=== PATIENT | female | born 1950 | race Caucasian/White ===

== ENCOUNTER 2018-03-09 11:01 | Inpatient (IN) ==
--- NOTE | 2018-03-09 11:51 | Emergency Department Note ---
Disposition Clinical Impression: Hallucinations, ESRD (end stage renal disease) Altered mental status Qualifiers: Altered mental status type: unspecified Qualified Code(s): R41.82 - Altered mental status, unspecified Disposition: Admitted As Inpatient Condition: Fair Referrals: George Mann DO [Primary Care Provider] - Forms: ED Satisfaction Letter Altered Mental Status HPI - General Chief Complaint: ED Altered Mental Status Stated Complaint: AMS Time Seen by Provider: 03/09/18 11:19 Source: patient Mode of arrival: ambulatory Limitations: no limitations Nursing Notes Reviewed: Yes Vital Signs Reviewed: Yes - History of Present Illness HPI Narrative: 67-year-old female with a history of end-stage renal disease(MWF with Dr. Wisdom), dialysis, anxiety and depression presents for evaluation of altered mental status. Patient presents in the care of her daughter. Patient does live in [place] [facility]. Daughter states the patient feels that she has bugs crawling in her hands and all throughout her body. Patient was evaluated [facility] after she was also seeing hallucinations. States that she feels that there are "Indians chasing her". Denies any recent medications.patient's daughter also states that she became really frustrated and threatened the patient stating that she wanted to kill her. However on my exam the patient denies any suicidal or homicidality. - Related Data Home Medications Medication Instructions Recorded Confirmed Amlodipine Besylate 10 mg PO DAILY 03/09/18 03/09/18 Cinacalcet [Sensipar] 30 mg PO DAILY 03/09/18 03/09/18 DULoxetine [Cymbalta] 30 mg PO DAILY 03/09/18 03/09/18 Docusate Sodium [Dok] 100 mg PO BID 03/09/18 03/09/18 Doxepin HCl 10 mg PO BID 03/09/18 03/09/18 FLUoxetine HCl [PROzac] 10 mg PO DAILY 03/09/18 03/09/18 Furosemide [Lasix] 80 mg PO BID PRN 03/09/18 03/09/18 Insulin Glargine [Lantus] 20 - 25 unit SQ HS PRN 03/09/18 03/09/18 Levothyroxine [Synthroid] 25 mcg PO DAILY 03/09/18 03/09/18 Metoprolol [Lopressor] 25 mg PO BID 03/09/18 03/09/18 Morphine Sulfate SR (12 HR) [MS 1 tab PO Q12HR 03/09/18 03/09/18 Contin] Omeprazole [PriLOSEC] 20 mg PO DAILY 03/09/18 03/09/18 Oxycodone HCl 15 mg PO Q6H PRN 03/09/18 03/09/18 Renal Vitamin [Renal Caps Softgel] 1 mg PO DAILY 03/09/18 03/09/18 Sevelamer [Renvela] 3,200 mg PO TIDWM 03/09/18 03/09/18 glipiZIDE [Glucotrol] 5 mg PO DAILY 03/09/18 03/09/18 Allergies Allergy/AdvReac Type Severity Reaction Status Date / Time Penicillins Allergy Rash Verified 03/09/18 11:29 iron AdvReac Vomiting Verified 03/09/18 11:29 All systems ED: reviewed and negative except as stated. Constitutional: Denies: fever Cardiovascular: Denies: chest pain Respiratory: Denies: cough Gastrointestinal: Denies: abdominal pain, nausea, vomiting Past Medical History - Past Medical History Source: patient Medical history: Reports: diabetes, hypertension Psychiatric history: Reports: anxiety - Social History Smoking Status: Never smoker Physical Exam - General Limitations: no limitations General appearance: alert, in no apparent distress - Head Head exam: atraumatic, normocephalic, normal inspection - Eye Eye exam: Present: normal appearance, PERRL, EOMI, scleral icterus - ENT ENT exam: normal exam - Neck Neck exam: Present: normal inspection - Chest Chest inspection: Present: normal inspection. Absent: symmetric chest wall rise - Respiratory Respiratory exam: Present: normal lung sounds bilaterally. Absent: prolonged expiratory phase - Cardiovascular Cardiovascular exam: Present: regular rate, normal rhythm. Absent: systolic murmur - Abdominal Exam Abdominal exam: Present: soft - Extremities Exam Extremities exam: Present: other (Bilateral below the knee amputations. Patient has a functioning right upper from the fistula in place.) - Expanded Upper Extremity Exam Shoulder exam: Present: normal inspection Arm exam: Present: normal inspection Elbow exam: Present: normal inspection Forearm/Wrist exam: Present: normal inspection Hand exam: Present: normal inspection. Absent: tenderness, swelling, abrasion, ecchymosis, deformity Neuromotor exam: Normal: wrist extension Neurosensory exam: Normal: radial nerve Vascular exam: Normal: capillary refill, radial pulse - Back Exam Back exam: Present: normal inspection - Neurological Exam Neurological exam: Present: alert - Psychiatric Psychiatric exam: Present: anxious - Skin Skin exam: Present: warm, dry, intact, normal color Course Course Narrative: Patient seen and examined. Patient appears to be resting comfortably. Patient does have visual hallucinations. Patient will get basic labs with attempted medical clearance. Disposition pending. - Reevaluation(s) Reevaluation #1: Patient's been resting comfortably. Time: 14:31 - Consultations Consultation #1: Spoke with Dr. Wisdom and made aware that the patient will be admitted. Time: 15:02 Vital Signs Temperature 98.0 F 03/09/18 11:03 Pulse Rate 81 03/09/18 11:03 Respiratory Rate 18 03/09/18 11:03 Blood Pressure 185/81 03/09/18 11:03 O2 Sat by Pulse Oximetry 92 03/09/18 11:03 Temperature 98.0 F 03/09/18 11:03 Pulse Rate 81 03/09/18 11:03 Respiratory Rate 18 03/09/18 11:03 Blood Pressure 185/81 03/09/18 11:03 O2 Sat by Pulse Oximetry 92 03/09/18 11:03 Oxygen Delivery Oxygen Delivery Room Air Altered Mental Status - Lab Data Lab results reviewed: Yes I reviewed the patient's lab results. Result diagrams: 03/09/18 11:56 03/09/18 11:56 Lab Results 03/09/18 03/09/18 03/09/18 Range/Units 11:56 11:56 11:56 WBC 9.3 (4.3-11.1) K/mcL RBC 3.24 L (3.82-4.97) M/mcL Hgb 10.5 L (11.5-15.4) g/dL Hct 32.4 L (35.3-44.9) % MCV 100.0 (83.0-100.0) fL MCH 32.4 (28.0-33.3) pg MCHC 32.4 (31.6-35.5) g/dL RDW 14.8 H (11.5-14.5) % Plt Count 181 (140-400) K/mcL MPV 10.4 (9.4-12.4) fL Immature Gran % 0.3 (0-4) % Seg Neutrophils % 79.3 % Lymphocytes % 10.5 % Monocytes % 5.7 % Eosinophils % 3.8 % Basophils % 0.4 % Neutrophils # 7.4 (1.6-8.9) K/mcL Lymphocytes # 1.0 (0.6-4.6) K/mcL Monocytes # 0.5 (0.0-1.3) K/mcL Eosinophils # 0.4 (0.0-0.6) K/mcL Basophils # 0.0 (0.0-0.2) K/mcL PT 46.2 H* (9.4-12.1) Seconds INR 4.2 Sodium 135 L (136-145) mEq/L Potassium 4.6 (3.5-5.1) mEq/L Chloride 93 L (98-107) mEq/L Carbon Dioxide 29 (23-29) mEq/L BUN 38 H (8-23) mg/dL Creatinine 6.07 H (0.60-1.20) mg/dL Est GFR ( Amer) 8 L (> 60) Est GFR (Non-Af Amer) 7 L (> 60) BUN/Creatinine Ratio 6 (6-26) Glucose 340 H (70-105) mg/dL Calculated Osmolality 302 H (280-300) Calcium 9.4 (8.6-10.3) mg/dL Total Bilirubin 0.8 (0.3-1.0) mg/dL Direct Bilirubin 0.4 H (0.0-0.2) mg/dL Indirect Bilirubin 0.4 (0.0-1.2) mg/dL AST 14 (13-39) Units/L ALT 11 (7-52) Units/L Alkaline Phosphatase 122 H (34-104) Units/L Serum Total Protein 7.5 (6.4-8.9) g/dL Albumin 4.5 (3.5-5.7) g/dL Globulin 3.0 (2.4-3.5) g/dL Albumin/Globulin Ratio 1.5 (1.1-2.2) TSH 10.599 H (0.340-5.600) mcIU/mL Urine Color (Yellow) Urine Clarity (Clear) Urine pH (5.0-8.0) pH Units Ur Specific Jamul (1.010-1.025) Urine Protein (Neg-Trace) mg/dL Urine Glucose (UA) (Normal) mg/dL Urine Ketones (Negative) mg/dL Urine Blood (Negative) Urine Nitrite (Negative) Urine Bilirubin (Negative) Urine Urobilinogen (Normal) mg/dL Ur Leukocyte Esterase (Negative) Urine Microscopic RBC (0-3) per hpf Urine Microscopic WBC (0-3) per hpf Ur Squamous Epith Cells (None-Few) per lpf Urine Bacteria (None-Few) per hpf Hyaline Casts (None-Few) per lpf Salicylates < 2.5 L (15.0-30.0) mg/dL Urine Opiates Screen (Fcjtcy=380) ng/mL Acetaminophen < 10 L (10-20) mcg/mL Ur Barbiturates Screen (Jzaaff=387) ng/mL Ur Phencyclidine Scrn (Cutoff=25) ng/mL Ur Amphetamines Screen (Pfrwzu=9279) ng/mL U Benzodiazepines Scrn (Senysf=005) ng/mL Urine Cocaine Screen (Cutoff= 300) ng/mL U Marijuana (THC) Screen (Cutoff = 50) ng/mL Ethyl Alcohol < 10 (Less than 10) mg/dL 03/09/18 03/09/18 Range/Units 12:40 12:40 WBC (4.3-11.1) K/mcL RBC (3.82-4.97) M/mcL Hgb (11.5-15.4) g/dL Hct (35.3-44.9) % MCV (83.0-100.0) fL MCH (28.0-33.3) pg MCHC (31.6-35.5) g/dL RDW (11.5-14.5) % Plt Count (140-400) K/mcL MPV (9.4-12.4) fL Immature Gran % (0-4) % Seg Neutrophils % % Lymphocytes % % Monocytes % % Eosinophils % % Basophils % % Neutrophils # (1.6-8.9) K/mcL Lymphocytes # (0.6-4.6) K/mcL Monocytes # (0.0-1.3) K/mcL Eosinophils # (0.0-0.6) K/mcL Basophils # (0.0-0.2) K/mcL PT (9.4-12.1) Seconds INR Sodium (136-145) mEq/L Potassium (3.5-5.1) mEq/L Chloride (98-107) mEq/L Carbon Dioxide (23-29) mEq/L BUN (8-23) mg/dL Creatinine (0.60-1.20) mg/dL Est GFR ( Amer) (> 60) Est GFR (Non-Af Amer) (> 60) BUN/Creatinine Ratio (6-26) Glucose (70-105) mg/dL Calculated Osmolality (280-300) Calcium (8.6-10.3) mg/dL Total Bilirubin (0.3-1.0) mg/dL Direct Bilirubin (0.0-0.2) mg/dL Indirect Bilirubin (0.0-1.2) mg/dL AST (13-39) Units/L ALT (7-52) Units/L Alkaline Phosphatase (34-104) Units/L Serum Total Protein (6.4-8.9) g/dL Albumin (3.5-5.7) g/dL Globulin (2.4-3.5) g/dL Albumin/Globulin Ratio (1.1-2.2) TSH (0.340-5.600) mcIU/mL Urine Color Yellow (Yellow) Urine Clarity Clear (Clear) Urine pH 7.5 (5.0-8.0) pH Units Ur Specific Jamul 1.019 (1.010-1.025) Urine Protein >=300 H (Neg-Trace) mg/dL Urine Glucose (UA) 500 H (Normal) mg/dL Urine Ketones Negative (Negative) mg/dL Urine Blood Negative (Negative) Urine Nitrite Negative (Negative) Urine Bilirubin Negative (Negative) Urine Urobilinogen Normal (Normal) mg/dL Ur Leukocyte Esterase Negative (Negative) Urine Microscopic RBC 3-5 H (0-3) per hpf Urine Microscopic WBC 3-5 H (0-3) per hpf Ur Squamous Epith Cells Many H (None-Few) per lpf Urine Bacteria None Seen (None-Few) per hpf Hyaline Casts None Seen (None-Few) per lpf Salicylates (15.0-30.0) mg/dL Urine Opiates Screen Positive H (Acvbdv=975) ng/mL Acetaminophen (10-20) mcg/mL Ur Barbiturates Screen Negative (Jguvxy=690) ng/mL Ur Phencyclidine Scrn Negative (Cutoff=25) ng/mL Ur Amphetamines Screen Negative (Uozuoh=3756) ng/mL U Benzodiazepines Scrn Negative (Kqxdxc=572) ng/mL Urine Cocaine Screen Negative (Cutoff= 300) ng/mL U Marijuana (THC) Screen Negative (Cutoff = 50) ng/mL Ethyl Alcohol (Less than 10) mg/dL - Radiology Data Radiology results reviewed: Yes I reviewed the patient's radiology results. - EKG Data EKG attestation: Yes I reviewed and interpreted this EKG. EKG shows normal: sinus rhythm Rate: normal Rhythm: NSR Maxwell/QRS: left axis deviation T wave inversions: v1 When compared to previous EKG there are: no significant changes Interpretation: no acute changes TPA Checklist - LKW: 3-4.5 hrs Add. Warnings/Precautions Patient/family understanding: The patient/family members have been counseled and understood the risk, benefit , and alternatives of treatment. Medical Clearance - [facility] Narrative Medical decision making narrative: Patient presents with concerns of altered mental status and hallucinations. On exam the patient has no focal neurologic deficits. Complaining of things in her skin. Skin crawling. Patient also verbalizes visual hallucinations. Daughter at bedside states the patient was combative and threatened homicide as well as suicide. Patient does have a history of chronic kidney disease with Dr. Wisdom. Patient's creatinine is consistent with prior evaluations in the setting of chronic kidney disease. Patient will get medically cleared and evaluated by psychiatry. - Lab Data Lab results reviewed: Yes I reviewed the patient's lab results. Result diagrams: 03/09/18 11:56 03/09/18 11:56 Lab Results 03/09/18 03/09/18 03/09/18 Range/Units 11:56 11:56 11:56 WBC 9.3 (4.3-11.1) K/mcL RBC 3.24 L (3.82-4.97) M/mcL Hgb 10.5 L (11.5-15.4) g/dL Hct 32.4 L (35.3-44.9) % MCV 100.0 (83.0-100.0) fL MCH 32.4 (28.0-33.3) pg MCHC 32.4 (31.6-35.5) g/dL RDW 14.8 H (11.5-14.5) % Plt Count 181 (140-400) K/mcL MPV 10.4 (9.4-12.4) fL Immature Gran % 0.3 (0-4) % Seg Neutrophils % 79.3 % Lymphocytes % 10.5 % Monocytes % 5.7 % Eosinophils % 3.8 % Basophils % 0.4 % Neutrophils # 7.4 (1.6-8.9) K/mcL Lymphocytes # 1.0 (0.6-4.6) K/mcL Monocytes # 0.5 (0.0-1.3) K/mcL Eosinophils # 0.4 (0.0-0.6) K/mcL Basophils # 0.0 (0.0-0.2) K/mcL PT 46.2 H* (9.4-12.1) Seconds INR 4.2 Sodium 135 L (136-145) mEq/L Potassium 4.6 (3.5-5.1) mEq/L Chloride 93 L (98-107) mEq/L Carbon Dioxide 29 (23-29) mEq/L BUN 38 H (8-23) mg/dL Creatinine 6.07 H (0.60-1.20) mg/dL Est GFR ( Amer) 8 L (> 60) Est GFR (Non-Af Amer) 7 L (> 60) BUN/Creatinine Ratio 6 (6-26) Glucose 340 H (70-105) mg/dL Calculated Osmolality 302 H (280-300) Calcium 9.4 (8.6-10.3) mg/dL Total Bilirubin 0.8 (0.3-1.0) mg/dL Direct Bilirubin 0.4 H (0.0-0.2) mg/dL Indirect Bilirubin 0.4 (0.0-1.2) mg/dL AST 14 (13-39) Units/L ALT 11 (7-52) Units/L Alkaline Phosphatase 122 H (34-104) Units/L Serum Total Protein 7.5 (6.4-8.9) g/dL Albumin 4.5 (3.5-5.7) g/dL Globulin 3.0 (2.4-3.5) g/dL Albumin/Globulin Ratio 1.5 (1.1-2.2) TSH 10.599 H (0.340-5.600) mcIU/mL Urine Color (Yellow) Urine Clarity (Clear) Urine pH (5.0-8.0) pH Units Ur Specific Jamul (1.010-1.025) Urine Protein (Neg-Trace) mg/dL Urine Glucose (UA) (Normal) mg/dL Urine Ketones (Negative) mg/dL Urine Blood (Negative) Urine Nitrite (Negative) Urine Bilirubin (Negative) Urine Urobilinogen (Normal) mg/dL Ur Leukocyte Esterase (Negative) Urine Microscopic RBC (0-3) per hpf Urine Microscopic WBC (0-3) per hpf Ur Squamous Epith Cells (None-Few) per lpf Urine Bacteria (None-Few) per hpf Hyaline Casts (None-Few) per lpf Salicylates < 2.5 L (15.0-30.0) mg/dL Urine Opiates Screen (Mpwynn=295) ng/mL Acetaminophen < 10 L (10-20) mcg/mL Ur Barbiturates Screen (Skxhkw=637) ng/mL Ur Phencyclidine Scrn (Cutoff=25) ng/mL Ur Amphetamines Screen (Ifjrop=5330) ng/mL U Benzodiazepines Scrn (Fxvwxm=272) ng/mL Urine Cocaine Screen (Cutoff= 300) ng/mL U Marijuana (THC) Screen (Cutoff = 50) ng/mL Ethyl Alcohol < 10 (Less than 10) mg/dL 03/09/18 03/09/18 Range/Units 12:40 12:40 WBC (4.3-11.1) K/mcL RBC (3.82-4.97) M/mcL Hgb (11.5-15.4) g/dL Hct (35.3-44.9) % MCV (83.0-100.0) fL MCH (28.0-33.3) pg MCHC (31.6-35.5) g/dL RDW (11.5-14.5) % Plt Count (140-400) K/mcL MPV (9.4-12.4) fL Immature Gran % (0-4) % Seg Neutrophils % % Lymphocytes % % Monocytes % % Eosinophils % % Basophils % % Neutrophils # (1.6-8.9) K/mcL Lymphocytes # (0.6-4.6) K/mcL Monocytes # (0.0-1.3) K/mcL Eosinophils # (0.0-0.6) K/mcL Basophils # (0.0-0.2) K/mcL PT (9.4-12.1) Seconds INR Sodium (136-145) mEq/L Potassium (3.5-5.1) mEq/L Chloride (98-107) mEq/L Carbon Dioxide (23-29) mEq/L BUN (8-23) mg/dL Creatinine (0.60-1.20) mg/dL Est GFR ( Amer) (> 60) Est GFR (Non-Af Amer) (> 60) BUN/Creatinine Ratio (6-26) Glucose (70-105) mg/dL Calculated Osmolality (280-300) Calcium (8.6-10.3) mg/dL Total Bilirubin (0.3-1.0) mg/dL Direct Bilirubin (0.0-0.2) mg/dL Indirect Bilirubin (0.0-1.2) mg/dL AST (13-39) Units/L ALT (7-52) Units/L Alkaline Phosphatase (34-104) Units/L Serum Total Protein (6.4-8.9) g/dL Albumin (3.5-5.7) g/dL Globulin (2.4-3.5) g/dL Albumin/Globulin Ratio (1.1-2.2) TSH (0.340-5.600) mcIU/mL Urine Color Yellow (Yellow) Urine Clarity Clear (Clear) Urine pH 7.5 (5.0-8.0) pH Units Ur Specific Jamul 1.019 (1.010-1.025) Urine Protein >=300 H (Neg-Trace) mg/dL Urine Glucose (UA) 500 H (Normal) mg/dL Urine Ketones Negative (Negative) mg/dL Urine Blood Negative (Negative) Urine Nitrite Negative (Negative) Urine Bilirubin Negative (Negative) Urine Urobilinogen Normal (Normal) mg/dL Ur Leukocyte Esterase Negative (Negative) Urine Microscopic RBC 3-5 H (0-3) per hpf Urine Microscopic WBC 3-5 H (0-3) per hpf Ur Squamous Epith Cells Many H (None-Few) per lpf Urine Bacteria None Seen (None-Few) per hpf Hyaline Casts None Seen (None-Few) per lpf Salicylates (15.0-30.0) mg/dL Urine Opiates Screen Positive H (Hevbrg=707) ng/mL Acetaminophen (10-20) mcg/mL Ur Barbiturates Screen Negative (Asljat=984) ng/mL Ur Phencyclidine Scrn Negative (Cutoff=25) ng/mL Ur Amphetamines Screen Negative (Oqleuh=3067) ng/mL U Benzodiazepines Scrn Negative (Opfrpb=383) ng/mL Urine Cocaine Screen Negative (Cutoff= 300) ng/mL U Marijuana (THC) Screen Negative (Cutoff = 50) ng/mL Ethyl Alcohol (Less than 10) mg/dL - Radiology Data Radiology results reviewed: Yes I reviewed the patient's radiology results. Chest X-Ray 03/09/18 11:47 IMPRESSION: Cardiomegaly with interstitial edema. Recommend correlation with any other signs of congestive heart failure. D/ / 03/09/2018 13:12:48 Paula Jacobson MD / [facility] Interpreting Provider: Paula Jacobson MD Head CT 03/09/18 11:47 IMPRESSION: No acute intracranial abnormality. Scattered subcortical and periventricular white matter hypodensities are most compatible with chronic small vessel disease. D/ / Melchor Miner MD / Melchor Miner MD Interpreting Provider: Melchor Miner MD
[2018-03-09 12:14] LABS: Basophils % 0.4 %; Eosinophils # 0.4 K/mcL (0.0-0.6); Eosinophils % 3.8 %; Hematocrit 32.4 % (35.3-44.9); Hemoglobin 10.5 g/dL (11.5-15.4); Immature Granulocytes % 0.3 % (0-4); Lymphocytes % 10.5 %; Mean Corpuscular HGB Conc 32.4 g/dL (31.6-35.5); Mean Corpuscular Hemoglobin 32.4 pg (28.0-33.3); Mean Platelet Volume 10.4 fL (9.4-12.4); Monocytes # 0.5 K/mcL (0.0-1.3); Monocytes % 5.7 %; Neutrophils # 7.4 K/mcL (1.6-8.9); Platelet Count 181 K/mcL (140-400); Red Blood Count 3.24 M/mcL (3.82-4.97); Red Cell Distribution Width 14.8 % (11.5-14.5); Segmented Neutrophils % 79.3 %
[2018-03-09 12:17] LABS: INR 4.2
[2018-03-09 12:24] LABS: Prothrombin Time 46.2 Seconds (9.4-12.1)
[2018-03-09 12:34] LABS: Alanine Aminotransferase 11 Units/L (7-52); Albumin 4.5 g/dL (3.5-5.7); Albumin/Globulin Ratio 1.5 (1.1-2.2); Alkaline Phosphatase 122 Units/L (34-104); Aspartate Amino Transferase 14 Units/L (13-39); BUN/Creatinine Ratio 6 (6-26); Bilirubin,Direct 0.4 mg/dL (0.0-0.2); Bilirubin,Indirect 0.4 mg/dL (0.0-1.2); Bilirubin,Total 0.8 mg/dL (0.3-1.0); Blood Urea Nitrogen 38 mg/dL (8-23); Calcium 9.4 mg/dL (8.6-10.3); Carbon Dioxide 29 mEq/L (23-29); Chloride 93 mEq/L (98-107); Glucose 340 mg/dL (70-105); Osmolality,Calculated 302 (280-300); Potassium 4.6 mEq/L (3.5-5.1); Sodium 135 mEq/L (136-145); Total Protein 7.5 g/dL (6.4-8.9); eGFR For African Americans 8 (> 60); eGFR For Non-African Americans 7 (> 60)
[2018-03-09 12:45] LABS: Thyroid Stimulating Hormone 10.599 mcIU/mL (0.340-5.600)
--- NOTE | 2018-03-09 13:04 | Emergency Department Note ---
Disposition Clinical Impression: Altered mental status Qualifiers: Altered mental status type: unspecified Qualified Code(s): R41.82 - Altered mental status, unspecified Disposition: Admitted As Inpatient Referrals: George Mann DO [Primary Care Provider] - Forms: ED Satisfaction Letter General Adult HPI - General Chief complaint: ED Altered Mental Status Stated complaint: AMS Time Seen by Provider: 03/09/18 11:19 Source: patient Mode of arrival: ambulatory Limitations: no limitations - History of Present Illness Pain Scale: 8 - Related Data Allergies Allergy/AdvReac Type Severity Reaction Status Date / Time Penicillins Allergy Rash Verified 03/09/18 11:29 iron AdvReac Vomiting Verified 03/09/18 11:29 Constitutional: Denies: fever Cardiovascular: Denies: chest pain Respiratory: Denies: cough Gastrointestinal: Denies: abdominal pain, nausea, vomiting Past Medical History - Past Medical History Medical history: Reports: diabetes, hypertension Psychiatric history: Reports: anxiety - Social History Smoking Status: Never smoker Physical Exam - General Limitations: no limitations General appearance: alert, in no apparent distress Course Vital Signs Temperature 98.0 F 03/09/18 11:03 Pulse Rate 81 03/09/18 11:03 Respiratory Rate 18 03/09/18 11:03 Blood Pressure 185/81 03/09/18 11:03 O2 Sat by Pulse Oximetry 92 03/09/18 11:03 Temperature 98.0 F 03/09/18 11:03 Pulse Rate 81 03/09/18 11:03 Respiratory Rate 18 03/09/18 11:03 Blood Pressure 185/81 03/09/18 11:03 O2 Sat by Pulse Oximetry 92 03/09/18 11:03 Oxygen Delivery Oxygen Delivery Room Air Medical Decision Making - Lab Data Result diagrams: 03/09/18 11:56 03/09/18 11:56 Lab Results 03/09/18 03/09/18 03/09/18 Range/Units 11:56 11:56 11:56 WBC 9.3 (4.3-11.1) K/mcL RBC 3.24 L (3.82-4.97) M/mcL Hgb 10.5 L (11.5-15.4) g/dL Hct 32.4 L (35.3-44.9) % MCV 100.0 (83.0-100.0) fL MCH 32.4 (28.0-33.3) pg MCHC 32.4 (31.6-35.5) g/dL RDW 14.8 H (11.5-14.5) % Plt Count 181 (140-400) K/mcL MPV 10.4 (9.4-12.4) fL Immature Gran % 0.3 (0-4) % Seg Neutrophils % 79.3 % Lymphocytes % 10.5 % Monocytes % 5.7 % Eosinophils % 3.8 % Basophils % 0.4 % Neutrophils # 7.4 (1.6-8.9) K/mcL Lymphocytes # 1.0 (0.6-4.6) K/mcL Monocytes # 0.5 (0.0-1.3) K/mcL Eosinophils # 0.4 (0.0-0.6) K/mcL Basophils # 0.0 (0.0-0.2) K/mcL PT 46.2 H* (9.4-12.1) Seconds INR 4.2 Sodium 135 L (136-145) mEq/L Potassium 4.6 (3.5-5.1) mEq/L Chloride 93 L (98-107) mEq/L Carbon Dioxide 29 (23-29) mEq/L BUN 38 H (8-23) mg/dL Creatinine 6.07 H (0.60-1.20) mg/dL Est GFR ( Amer) 8 L (> 60) Est GFR (Non-Af Amer) 7 L (> 60) BUN/Creatinine Ratio 6 (6-26) Glucose 340 H (70-105) mg/dL Calculated Osmolality 302 H (280-300) Calcium 9.4 (8.6-10.3) mg/dL Total Bilirubin 0.8 (0.3-1.0) mg/dL Direct Bilirubin 0.4 H (0.0-0.2) mg/dL Indirect Bilirubin 0.4 (0.0-1.2) mg/dL AST 14 (13-39) Units/L ALT 11 (7-52) Units/L Alkaline Phosphatase 122 H (34-104) Units/L Serum Total Protein 7.5 (6.4-8.9) g/dL Albumin 4.5 (3.5-5.7) g/dL Globulin 3.0 (2.4-3.5) g/dL Albumin/Globulin Ratio 1.5 (1.1-2.2) TSH 10.599 H (0.340-5.600) mcIU/mL Attestation Statement - Attestation Attestation: I examined this patient and my medical decision-making was reviewed with the Resident Physician. I agree with the documented findings, disposition and treatment plan as described except to the extent set forth below. 67 year old female presents to the ED wtih complaints of AMS per her daughter. Taurus has presented as such before with UTI and is a dialysis patient with [facility] and scheduled for dialysis tomorrow. Taurus has become more aggressive at home and is threatening to hurt her daughter at bedside. WE will do aMS wokrup and rule out UTI and then admit to medicine for AMS and geriatric pysch clearance
[2018-03-09 13:09] LABS: Bilirubin,Urine Negative (Negative); Blood,Urine Negative (Negative); Clarity,Urine Clear (Clear); Color,Urine Yellow (Yellow); Glucose,Urine (UA) 500 mg/dL (Normal); Ketones,Urine Negative (Negative); Leukocyte Esterase,Urine Negative (Negative); Nitrite,Urine Negative (Negative); PH,Urine 7.5 pH Units (5.0-8.0); Protein,Urine >=300 mg/dL (Neg-Trace); Specific Gravity,Urine 1.019 (1.010-1.025); Urobilinogen,Urine Normal (Normal)
[2018-03-09 13:12] LABS: Bacteria,Urine None Seen per hpf (None-Few); Hyaline Casts,Urine None Seen per lpf (None-Few); Squamous Epithelial Cell,Urine Many per lpf (None-Few)
[2018-03-09 13:21] LABS: Amphetamine Screen,Urine Negative ng/mL (Cutoff=1000); Barbiturate Screen,Urine Negative ng/mL (Cutoff=200); Benzodiazepines Screen,Urine Negative ng/mL (Cutoff=200); Cannabinoid Screen,Urine Negative ng/mL (Cutoff = 50); Cocaine Screen,Urine Negative ng/mL (Cutoff= 300); Opiate Screen,Urine Positive ng/mL (Cutoff=300); Phencyclidine Screen,Urine Negative ng/mL (Cutoff=25)
[2018-03-09 13:29] LABS: Acetaminophen < 10 mcg/mL (10-20)
[2018-03-09 14:14] LABS: Ethanol < 10 mg/dL (Less than 10); Salicylate < 2.5 mg/dL (15.0-30.0)
--- NOTE | 2018-03-09 15:38 | Emergency Department Note ---
Disposition Clinical Impression: Hallucinations, ESRD (end stage renal disease), Hyperglycemia Altered mental status Qualifiers: Altered mental status type: unspecified Qualified Code(s): R41.82 - Altered mental status, unspecified Disposition: Admitted As Inpatient Condition: Fair Referrals: George Mann DO [Primary Care Provider] - Forms: ED Satisfaction Letter Time of Disposition: 15:49 General Adult HPI - General Chief complaint: ED Altered Mental Status Stated complaint: AMS Time Seen by Provider: 03/09/18 11:19 Source: patient Mode of arrival: ambulatory Limitations: no limitations - History of Present Illness HPI Narrative: This is a continuation of documentation. Pain Scale: 8 - Related Data Home Medications Medication Instructions Recorded Confirmed Amlodipine Besylate 10 mg PO DAILY 03/09/18 03/09/18 Cinacalcet [Sensipar] 30 mg PO DAILY 03/09/18 03/09/18 DULoxetine [Cymbalta] 30 mg PO DAILY 03/09/18 03/09/18 Docusate Sodium [Dok] 100 mg PO BID 03/09/18 03/09/18 Doxepin HCl 10 mg PO BID 03/09/18 03/09/18 FLUoxetine HCl [PROzac] 10 mg PO DAILY 03/09/18 03/09/18 Furosemide [Lasix] 80 mg PO BID PRN 03/09/18 03/09/18 Insulin Glargine [Lantus] 20 - 25 unit SQ HS PRN 03/09/18 03/09/18 Levothyroxine [Synthroid] 25 mcg PO DAILY 03/09/18 03/09/18 Metoprolol [Lopressor] 25 mg PO BID 03/09/18 03/09/18 Morphine Sulfate SR (12 HR) [MS 1 tab PO Q12HR 03/09/18 03/09/18 Contin] Omeprazole [PriLOSEC] 20 mg PO DAILY 03/09/18 03/09/18 Oxycodone HCl 15 mg PO Q6H PRN 03/09/18 03/09/18 Renal Vitamin [Renal Caps Softgel] 1 mg PO DAILY 03/09/18 03/09/18 Sevelamer [Renvela] 3,200 mg PO TIDWM 03/09/18 03/09/18 glipiZIDE [Glucotrol] 5 mg PO DAILY 03/09/18 03/09/18 Allergies Allergy/AdvReac Type Severity Reaction Status Date / Time Penicillins Allergy Rash Verified 03/09/18 11:29 iron AdvReac Vomiting Verified 03/09/18 11:29 Constitutional: Denies: fever Cardiovascular: Denies: chest pain Respiratory: Denies: cough Gastrointestinal: Denies: abdominal pain, nausea, vomiting Past Medical History - Past Medical History Medical history: Reports: diabetes, hypertension Psychiatric history: Reports: anxiety - Social History Smoking Status: Never smoker Physical Exam - General Limitations: no limitations General appearance: alert, in no apparent distress Course Vital Signs Temperature 98.0 F 03/09/18 11:03 Pulse Rate 81 03/09/18 11:03 Respiratory Rate 18 03/09/18 11:03 Blood Pressure 185/81 03/09/18 11:03 O2 Sat by Pulse Oximetry 92 03/09/18 11:03 Temperature 98.0 F 03/09/18 11:03 Pulse Rate 81 03/09/18 11:03 Respiratory Rate 18 03/09/18 11:03 Blood Pressure 185/81 03/09/18 11:03 O2 Sat by Pulse Oximetry 92 03/09/18 11:03 Oxygen Delivery Oxygen Delivery Room Air Medical Decision Making - MDM Narrative Medical decision making narrative: Patient's a 67-year-old female with history of anxiety depression who presented for suicide as well as homicidal ideations. This was expressed by the patient' s daughter. Patient has no history of SI. Patient's also been having some visual hallucinations. Patient has not been medically cleared and she has an element of end-stage renal disease. Patient will need continued medical management and consultation with psychiatry. Discussed the case with psychiatry who feels that the patient should best be admitted for her chronic conditions. Discussed the case with nephrology who made aware that the patient will be admitted. Patient did gradually tapers some of her Klonopin over the past several weeks. No recent changes in medications. Patient denies history of drugs or alcohol. Patient is noted be hyperglycemic and given insulin. - Lab Data Lab results reviewed: Yes I reviewed the patient's lab results. Result diagrams: 03/09/18 11:56 03/09/18 11:56 Lab Results 03/09/18 03/09/18 03/09/18 Range/Units 11:47 11:56 11:56 WBC 9.3 (4.3-11.1) K/mcL RBC 3.24 L (3.82-4.97) M/mcL Hgb 10.5 L (11.5-15.4) g/dL Hct 32.4 L (35.3-44.9) % MCV 100.0 (83.0-100.0) fL MCH 32.4 (28.0-33.3) pg MCHC 32.4 (31.6-35.5) g/dL RDW 14.8 H (11.5-14.5) % Plt Count 181 (140-400) K/mcL MPV 10.4 (9.4-12.4) fL Immature Gran % 0.3 (0-4) % Seg Neutrophils % 79.3 % Lymphocytes % 10.5 % Monocytes % 5.7 % Eosinophils % 3.8 % Basophils % 0.4 % Neutrophils # 7.4 (1.6-8.9) K/mcL Lymphocytes # 1.0 (0.6-4.6) K/mcL Monocytes # 0.5 (0.0-1.3) K/mcL Eosinophils # 0.4 (0.0-0.6) K/mcL Basophils # 0.0 (0.0-0.2) K/mcL PT 46.2 H* (9.4-12.1) Seconds INR 4.2 Sodium (136-145) mEq/L Potassium (3.5-5.1) mEq/L Chloride (98-107) mEq/L Carbon Dioxide (23-29) mEq/L BUN (8-23) mg/dL Creatinine (0.60-1.20) mg/dL Est GFR ( Amer) (> 60) Est GFR (Non-Af Amer) (> 60) BUN/Creatinine Ratio (6-26) Glucose (70-105) mg/dL POC Glucose 314 H (70-99) mg/dL Calculated Osmolality (280-300) Calcium (8.6-10.3) mg/dL Total Bilirubin (0.3-1.0) mg/dL Direct Bilirubin (0.0-0.2) mg/dL Indirect Bilirubin (0.0-1.2) mg/dL AST (13-39) Units/L ALT (7-52) Units/L Alkaline Phosphatase (34-104) Units/L Serum Total Protein (6.4-8.9) g/dL Albumin (3.5-5.7) g/dL Globulin (2.4-3.5) g/dL Albumin/Globulin Ratio (1.1-2.2) TSH (0.340-5.600) mcIU/mL Urine Color (Yellow) Urine Clarity (Clear) Urine pH (5.0-8.0) pH Units Ur Specific [place] (1.010-1.025) Urine Protein (Neg-Trace) mg/dL Urine Glucose (UA) (Normal) mg/dL Urine Ketones (Negative) mg/dL Urine Blood (Negative) Urine Nitrite (Negative) Urine Bilirubin (Negative) Urine Urobilinogen (Normal) mg/dL Ur Leukocyte Esterase (Negative) Urine Microscopic RBC (0-3) per hpf Urine Microscopic WBC (0-3) per hpf Ur Squamous Epith Cells (None-Few) per lpf Urine Bacteria (None-Few) per hpf Hyaline Casts (None-Few) per lpf Salicylates (15.0-30.0) mg/dL Urine Opiates Screen (Arpsgd=293) ng/mL Acetaminophen (10-20) mcg/mL Ur Barbiturates Screen (Xjgtsj=879) ng/mL Ur Phencyclidine Scrn (Cutoff=25) ng/mL Ur Amphetamines Screen (Qfrvvf=9054) ng/mL U Benzodiazepines Scrn (Bgqepi=266) ng/mL Urine Cocaine Screen (Cutoff= 300) ng/mL U Marijuana (THC) Screen (Cutoff = 50) ng/mL Ethyl Alcohol (Less than 10) mg/dL 03/09/18 03/09/18 03/09/18 Range/Units 11:56 12:40 12:40 WBC (4.3-11.1) K/mcL RBC (3.82-4.97) M/mcL Hgb (11.5-15.4) g/dL Hct (35.3-44.9) % MCV (83.0-100.0) fL MCH (28.0-33.3) pg MCHC (31.6-35.5) g/dL RDW (11.5-14.5) % Plt Count (140-400) K/mcL MPV (9.4-12.4) fL Immature Gran % (0-4) % Seg Neutrophils % % Lymphocytes % % Monocytes % % Eosinophils % % Basophils % % Neutrophils # (1.6-8.9) K/mcL Lymphocytes # (0.6-4.6) K/mcL Monocytes # (0.0-1.3) K/mcL Eosinophils # (0.0-0.6) K/mcL Basophils # (0.0-0.2) K/mcL PT (9.4-12.1) Seconds INR Sodium 135 L (136-145) mEq/L Potassium 4.6 (3.5-5.1) mEq/L Chloride 93 L (98-107) mEq/L Carbon Dioxide 29 (23-29) mEq/L BUN 38 H (8-23) mg/dL Creatinine 6.07 H (0.60-1.20) mg/dL Est GFR ( Amer) 8 L (> 60) Est GFR (Non-Af Amer) 7 L (> 60) BUN/Creatinine Ratio 6 (6-26) Glucose 340 H (70-105) mg/dL POC Glucose (70-99) mg/dL Calculated Osmolality 302 H (280-300) Calcium 9.4 (8.6-10.3) mg/dL Total Bilirubin 0.8 (0.3-1.0) mg/dL Direct Bilirubin 0.4 H (0.0-0.2) mg/dL Indirect Bilirubin 0.4 (0.0-1.2) mg/dL AST 14 (13-39) Units/L ALT 11 (7-52) Units/L Alkaline Phosphatase 122 H (34-104) Units/L Serum Total Protein 7.5 (6.4-8.9) g/dL Albumin 4.5 (3.5-5.7) g/dL Globulin 3.0 (2.4-3.5) g/dL Albumin/Globulin Ratio 1.5 (1.1-2.2) TSH 10.599 H (0.340-5.600) mcIU/mL Urine Color Yellow (Yellow) Urine Clarity Clear (Clear) Urine pH 7.5 (5.0-8.0) pH Units Ur Specific [place] 1.019 (1.010-1.025) Urine Protein >=300 H (Neg-Trace) mg/dL Urine Glucose (UA) 500 H (Normal) mg/dL Urine Ketones Negative (Negative) mg/dL Urine Blood Negative (Negative) Urine Nitrite Negative (Negative) Urine Bilirubin Negative (Negative) Urine Urobilinogen Normal (Normal) mg/dL Ur Leukocyte Esterase Negative (Negative) Urine Microscopic RBC 3-5 H (0-3) per hpf Urine Microscopic WBC 3-5 H (0-3) per hpf Ur Squamous Epith Cells Many H (None-Few) per lpf Urine Bacteria None Seen (None-Few) per hpf Hyaline Casts None Seen (None-Few) per lpf Salicylates < 2.5 L (15.0-30.0) mg/dL Urine Opiates Screen Positive H (Evwhsd=761) ng/mL Acetaminophen < 10 L (10-20) mcg/mL Ur Barbiturates Screen Negative (Rzpfch=292) ng/mL Ur Phencyclidine Scrn Negative (Cutoff=25) ng/mL Ur Amphetamines Screen Negative (Ndlkfx=5507) ng/mL U Benzodiazepines Scrn Negative (Lfnoih=213) ng/mL Urine Cocaine Screen Negative (Cutoff= 300) ng/mL U Marijuana (THC) Screen Negative (Cutoff = 50) ng/mL Ethyl Alcohol < 10 (Less than 10) mg/dL - Radiology Data Radiology results reviewed: Yes I reviewed the patient's radiology results. Chest X-Ray 03/09/18 11:47 IMPRESSION: Cardiomegaly with interstitial edema. Recommend correlation with any other signs of congestive heart failure. D/ / 03/09/2018 13:12:48 Paula Jacobson MD / [facility] Interpreting Provider: Paula Jacobsno MD Head CT 03/09/18 11:47 IMPRESSION: No acute intracranial abnormality. Scattered subcortical and periventricular white matter hypodensities are most compatible with chronic small vessel disease. D/ / Melchor Miner MD / Melchor Miner MD Interpreting Provider: Melchor Miner MD - EKG Data EKG #1 EKG attestation: Yes I reviewed and interpreted this EKG. EKG shows normal: sinus rhythm Rate: normal Rhythm: NSR [place]/QRS: normal T wave inversions noted in: v1 Interpretation: no acute changes, nonspecific ST-T wave changes S.B.Reta - [place] Situation: Demographics Background: Presenting Complaint Assessment: Vital Signs, Course and respsone to treatment, Patient/Family Expectation Recommendation: Barrier(s) to disposition, Recommendation based on pending studies, treatments, or consults SToño Report Given to: Dr. Delroy Joseph Repor Time: 15:48
[2018-03-09] MEDS ORDERED: Insulin Regular, Human 100 UNIT/ML IV ONE (15:47)
[2018-03-09] MEDS ORDERED: *HR* OxyCODONE Immed Rel 15 MG TABLET PO PRN (18:44)
[2018-03-09] MEDS ORDERED: *HR* LORazepam 2 MG/ML VIAL IVP PRN (18:47)
[2018-03-09] MEDS ORDERED: *HR* Dextrose 50 % in Water (Syg) 50 ML SYRINGE IVP PRN (18:48)
[2018-03-09] MEDS ORDERED: D5% in Water 1,000 ML IVC PRN (18:48)
[2018-03-09] MEDS ORDERED: Naloxone 0.4 MG/ML INJ IVP PRN (18:48)
[2018-03-09] MEDS ORDERED: Dextrose Gel 15 GM/37.5 ML TUBE PO PRN ×2 (18:48)
--- NOTE | 2018-03-09 18:57 | Internal Med History&Physical ---
Date of Encounter: 03/09/18 Time of Encounter: 18:54 Internal Medicine - H&P: HPI Chief complaint: Homicidal ideation, hallucinations Admitted From: Home Plans for Post Hospital Care: Home History of present illness: Ms. Lynch is a 67 year old female with a PMH of anxiety, diabetes, hypertension and ESRD. She presents to [facility] today for evaluation of altered mental status. The patient lives in a care home, daughter is at bedside. Daughter states that the patient is stating "I feel if her bugs crawling in and throughout her body ". Additionally, her daughters reporting that although her mother is blind she is having hallucinations and that she feels like "Indians are chasing her". Her daughter is also reporting homicidal ideation saying the patient became frustrated and saying that she wanted to kill her. Her daughter reports that her mother's primary care provider has recently stopped prescribing clonazepam because she is also taking opiates. She was weaned from the clonazepam and starting on doxepin overdose pain was causing adverse reactions as well and was discontinued abruptly. Her mental status has been declining since. CT of the head in the ED negative for acute intracranial abnormality. She is being admitted inpatient for psychiatric evaluation secondary to acute psychosis Past Med Surg Social Fam HX - Past Medical History Medical history: atrial fibrillation, diabetes, hypertension, renal disease Psychiatric history: anxiety - Social History Smoking Status: Never smoker Smokeless Tobacco Status: No Alcohol use: none Drug use: none - Family History Father Living Status: Age at : 80 Hx Family Cardiac Disorders: Yes Hx Family Cancer: Yes (prostate) Internal Medicine - H&P: Meds Amlodipine Besylate 10 mg PO DAILY 03/09/18 [History] Cinacalcet [Sensipar] 30 mg PO DAILY 03/09/18 [History] DULoxetine [Cymbalta] 30 mg PO DAILY 03/09/18 [History] Docusate Sodium [Dok] 100 mg PO BID 03/09/18 [History] Doxepin HCl 10 mg PO BID 03/09/18 [History] FLUoxetine HCl [PROzac] 10 mg PO DAILY 03/09/18 [History] Furosemide [Lasix] 80 mg PO BID PRN 03/09/18 [History] Insulin Glargine [Lantus] 20 - 25 unit SQ HS PRN 03/09/18 [History] Levothyroxine [Synthroid] 25 mcg PO DAILY 03/09/18 [History] Metoprolol [Lopressor] 25 mg PO BID 03/09/18 [History] Morphine Sulfate SR (12 HR) [MS Contin] 1 tab PO Q12HR 03/09/18 [History] Omeprazole [PriLOSEC] 20 mg PO DAILY 03/09/18 [History] Oxycodone HCl 15 mg PO Q6H PRN 03/09/18 [History] Renal Vitamin [Renal Caps Softgel] 1 mg PO DAILY 03/09/18 [History] Sevelamer [Renvela] 3,200 mg PO TIDWM 03/09/18 [History] glipiZIDE [Glucotrol] 5 mg PO DAILY 03/09/18 [History] 3 Allergy/AdvReac Type Severity Reaction Status Date / Time Penicillins Allergy Rash Verified 03/09/18 11:29 iron AdvReac Vomiting Verified 03/09/18 11:29 All Systems PM: A 10-system review of systems was performed and is negative for pertinent findings except as documented above in the HPI. Review of systems: REVIEW OF SYSTEMS GENERAL: Negative for any nausea, vomiting, fevers, chills, or weight loss. NEUROLOGIC: Negative for any blurry vision, blind spots, double vision, facial asymmetry, dysphagia, dysarthria, hemiparesis, hemisensory deficits, vertigo, ataxia. HEENT: Negative for any head trauma, neck trauma, neck stiffness, photophobia, phonophobia, sinusitis, rhinitis. CARDIAC: Negative for any chest pain, dyspnea on exertion, paroxysmal nocturnal dyspnea, peripheral edema. PULMONARY: Negative for any shortness of breath, wheezing, COPD, or TB exposure. GASTROINTESTINAL: Negative for any abdominal pain, nausea, vomiting, bright red blood per rectum, melena. GENITOURINARY: Negative for any dysuria, hematuria, incontinence. INTEGUMENTARY: Negative for any rashes, cuts, insect bites. RHEUMATOLOGIC: Negative for any joint pains, photosensitive rashes, history of vasculitis or kidney problems. HEMATOLOGIC: Negative for any abnormal bruising, frequent infections or bleeding. PSYCHOLOGICAL: Formication, Hallucinations, homicidal ideation - Constitutional Vitals: Temp Pulse Resp BP Pulse Ox 98.2 F 71 17 189/76 90 03/09/18 18:00 03/09/18 18:00 03/09/18 18:00 03/09/18 18:00 03/09/18 18:00 General appearance: Present: A&O X 2 Exam: PHYSICAL EXAMINATION: GENERAL: The patient is an obese, ill appearing female in mild distress secondary to psychosis. She is alert and oriented x3 HEENT: Head is normocephalic and atraumatic. NECK: Supple. No carotid bruits. No lymphadenopathy or thyromegaly. LUNGS: Clear to auscultation. HEART: Regular rate and rhythm without murmur. ABDOMEN: Soft, nontender, and nondistended. Positive bowel sounds. No hepatosplenomegaly was noted. 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 PSYCHIATRIC: The patient has formication reporting that forms are crawling under her skin and into her veins, additionally, she is blind but is reporting seeing objects, additionally she has homicidal ideation SKIN: No rashes, lesions, cyanosis or jaundice Internal Med - H&P Results - Labs CBC & Chem 7: 03/09/18 11:56 03/09/18 11:56 - EKG Data -: EKG Interpreted by Myself EKG shows normal: sinus rhythm - EKG Data EKG comments: Sinus rhythm with left axis deviation T-wave inversion in V1 otherwise no significant changes 03/09/18 19:00 - Impressions Impressions Chest X-Ray 03/09/18 11:47 IMPRESSION: Cardiomegaly with interstitial edema. Recommend correlation with any other signs of congestive heart failure. D/ / 03/09/2018 13:12:48 Paula Jacobson MD / [facility] Interpreting Provider: Paula Jacobson MD Head CT 03/09/18 11:47 IMPRESSION: No acute intracranial abnormality. Scattered subcortical and periventricular white matter hypodensities are most compatible with chronic small vessel disease. D/ / Melchor Miner MD / Melchor Miner MD Interpreting Provider: Melchor Miner MD - Assessment and plan (1) Acute psychosis Current Visit: Yes Status: Acute Assessment and plan: Presents today with hallucinations, homicidal ideation, anger and formication. Her daughter is at bedside and reports that she is also experiencing braulio and reports that she has not slept since Friday night. The patient has been on opiates and clonazepam chronically for many years. She was recently weaned from clonazepam over the course of many weeks and switched to Doxapine. While on the doxepin she began having night terrors and outbursts of anger so it was also discontinued. However the doxepin was discontinued abruptly. This could be contributing to her current presentation She is currently denying any homicidal ideation, denies suicidal ideation but is continuing to have formication and hallucinations Consult to psychiatry for recommendations regarding resuming clonazepam and/or medication management. ED physician spoke to psychiatrist who will see in consultation (2) Hallucinations Current Visit: Yes Status: Acute (3) Braulio Current Visit: Yes Status: Acute (4) Altered mental status Current Visit: Yes Status: Acute Qualifiers: Altered mental status type: unspecified Qualified Code(s): R41.82 - Altered mental status, unspecified (5) Diabetes Current Visit: Yes Status: Acute Assessment and plan: Sliding scale insulin coverage Resume basal insulin at home dose 20 units SQ daily at bedtime Qualifiers: Diabetes mellitus type: type 2 Diabetes mellitus mcfp insulin use: with mcfp use Diabetes mellitus complication status: with unspecified complications Qualified Code(s): E11.8 - Type 2 diabetes mellitus with unspecified complications; Z79.4 - retirement (current) use of insulin; Z79.4 - 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 Patient reports she follows with Dr. Greene. She is a [facility] dialysis patient. She did not receive dialysis today. Today's creatinine 6.07, GFR 7. The patient appears to be euvolemic Nephrology consult-ED physician spoke with nephrology who will see the patient in consultation (8) DVT prophylaxis Current Visit: Yes Status: Acute Assessment and plan: PT/INR 46.2/4.2; she does not take any blood thinners Hold heparin for now - Time Spent With Patient Total time spent is greater than 50% in coordination of care (as documented) at patient's floor/unit and/or counseling patient: 25 - 35 minutes
[2018-03-09] MEDS: Insulin LISPRO 300 UNITS/3 ML VIAL SQ SCH (20:44)
[2018-03-09] MEDS: (Doxepin Hcl [Doxepin Hcl] 10 MG) PO SCH (20:46)
[2018-03-09] MEDS: Furosemide 40 MG TABLET PO SCH (20:56)
[2018-03-09] MEDS ORDERED: Insulin DETEMIR 100 UNIT/ML X5UNITS SQ SCH (21:00)
[2018-03-10] MEDS ORDERED: *HR* Heparin 5,000 UNIT/ML VIAL SQ SCH (06:00)
[2018-03-10 06:02] LABS: Basophils % 0.4 %; Eosinophils # 0.4 K/mcL (0.0-0.6); Eosinophils % 4.6 %; Hemoglobin 9.6 g/dL (11.5-15.4); Immature Granulocytes % 0.2 % (0-4); Lymphocytes # 1.9 K/mcL (0.6-4.6); Lymphocytes % 22.6 %; Mean Corpuscular Hemoglobin 32.2 pg (28.0-33.3); Mean Corpuscular Volume 100.7 fL (83.0-100.0); Mean Platelet Volume 10.8 fL (9.4-12.4); Monocytes # 0.9 K/mcL (0.0-1.3); Monocytes % 10.3 %; Neutrophils # 5.1 K/mcL (1.6-8.9); Platelet Count 176 K/mcL (140-400); Red Blood Count 2.98 M/mcL (3.82-4.97); Red Cell Distribution Width 14.7 % (11.5-14.5); Segmented Neutrophils % 61.9 %
[2018-03-10] MEDS: Levothyroxine 25 MCG TABLET PO SCH (06:11)
[2018-03-10 06:21] LABS: Albumin 3.8 g/dL (3.5-5.7); Albumin/Globulin Ratio 1.4 (1.1-2.2); Bilirubin,Total 0.8 mg/dL (0.3-1.0); Calcium 8.5 mg/dL (8.6-10.3); Globulin 2.8 g/dL (2.4-3.5); Potassium 4.3 mEq/L (3.5-5.1); Total Protein 6.6 g/dL (6.4-8.9)
--- NOTE | 2018-03-10 08:03 | Nephrology Consult Note ---
Date of Encounter: 03/10/18 Time of Encounter: 08:00 Assessment and Plan (1) ESRD (end stage renal disease) Current Visit: Yes Status: Acute The patient has end-stage renal disease related to diabetic nephropathy and hypertension. She missed dialysis yesterday so she will undergo dialysis today. Hemoglobin is 9.6. She will be maintained on Aranesp. TSH is 10.59. She may need adjustment of her Synthroid. (2) Benign hypertension with ESRD (end-stage renal disease) Current Visit: Yes Status: Acute (3) Type 2 diabetes mellitus with diabetic chronic kidney disease Current Visit: Yes Status: Acute Qualifiers: Diabetes mellitus longwall foreman insulin use: with longwall foreman use Chronic kidney disease stage: on chronic dialysis Qualified Code(s): E11.22 - Type 2 diabetes mellitus with diabetic chronic kidney disease; N18.6 - End stage renal disease; Z99.2 - Dependence on renal dialysis; Z99.2 - Dependence on renal dialysis; Z99.2 - Dependence on renal dialysis; N18.6 - End stage renal disease ; N18.6 - End stage renal disease; N18.6 - End stage renal disease; Z79.4 - equipment operator intermodal yard (current) use of insulin; Z79.4 - equipment operator intermodal yard (current) use of insulin; Z79.4 - equipment operator intermodal yard (current) use of insulin; Z79.4 - senior living (current) use of insulin; Z99.2 - Dependence on renal dialysis (4) Altered mental status Current Visit: Yes Status: Acute Qualifiers: Altered mental status type: disorientation Qualified Code(s): R41.0 - Disorientation, unspecified History of Present Illness - History of Present Illness This is a 67-year-old female who has end-stage renal disease related to diabetes and hypertension. The patient receives dialysis every Friday in [place]. Patient was admitted with mental status changes in the setting of being weaned off her Klonopin. Patient does take narcotic analgesics on a chronic basis as well. I believe she receives his medications from her primary care provider. This morning the patient appears to be alert and oriented. She says overall she is feeling better. She did not undergo her dialysis yesterday so she will have dialysis today. Lab studies have been re- reviewed. Patient is not complaining of any shortness of breath nausea vomiting chest pain diarrhea fevers or chills. Past Med Surg Social Fam HX - Past Medical History Medical history: atrial fibrillation, diabetes, hypertension, renal disease Psychiatric history: anxiety - Social History Smoking Status: Never smoker Smokeless Tobacco Status: No Alcohol use: none Drug use: none - Family History Father Living Status: Age at : 80 Hx Family Cardiac Disorders: Yes Hx Family Cancer: Yes (prostate) Medications and Allergies Amlodipine Besylate 10 mg PO DAILY 03/09/18 [History] Cinacalcet [Sensipar] 30 mg PO DAILY 03/09/18 [History] DULoxetine [Cymbalta] 30 mg PO DAILY 03/09/18 [History] Docusate Sodium [Dok] 100 mg PO BID 03/09/18 [History] Doxepin HCl 10 mg PO BID 03/09/18 [History] FLUoxetine HCl [PROzac] 10 mg PO DAILY 03/09/18 [History] Furosemide [Lasix] 80 mg PO BID PRN 03/09/18 [History] Insulin Glargine [Lantus] 20 - 25 unit SQ HS PRN 03/09/18 [History] Levothyroxine [Synthroid] 25 mcg PO DAILY 03/09/18 [History] Metoprolol [Lopressor] 25 mg PO BID 03/09/18 [History] Morphine Sulfate SR (12 HR) [MS Contin] 1 tab PO Q12HR 03/09/18 [History] Omeprazole [PriLOSEC] 20 mg PO DAILY 03/09/18 [History] Oxycodone HCl 15 mg PO Q6H PRN 03/09/18 [History] Renal Vitamin [Renal Caps Softgel] 1 mg PO DAILY 03/09/18 [History] Sevelamer [Renvela] 3,200 mg PO TIDWM 03/09/18 [History] glipiZIDE [Glucotrol] 5 mg PO DAILY 03/09/18 [History] 3 Allergy/AdvReac Type Severity Reaction Status Date / Time Penicillins Allergy Rash Verified 03/09/18 11:29 iron AdvReac Vomiting Verified 03/09/18 11:29 Review of Systems Constitutional: as per HPI, weakness Eyes: bilateral: decreased vision, loss of vision Nose, mouth and throat: no dizziness, no headache(s) Cardiovascular: dyspnea on exertion, no chest pain, no palpitations Respiratory: dyspnea on exertion, no cough, no dyspnea Gastrointestinal: no abdominal pain, no change in bowel habits Musculoskeletal: no muscle weakness, no numbness Integumentary: no hirsutism, no striae Neurological: confusion Psychiatric: confusion Endocrine: as per HPI Hematologic/Lymphatic: no easy bruising, no lymphadenopathy Exam - Vital Signs Vital signs: Initial Vital Signs Temp Pulse Resp BP Pulse Ox 98.0 F 81 18 185/81 92 03/09/18 11:03 03/09/18 11:03 03/09/18 11:03 03/09/18 11:03 03/09/18 11:03 Vital Signs - Last 8 Hours Temp Pulse Resp BP Pulse Ox 03/10/18 05:00 98 F 62 16 154/87 99 Intake and Output 03/09/18 03/10/18 03/10/18 23:59 07:59 15:59 Intake Total 240 / 240 0 / 0 Output Total 300 / 300 Balance -60 / -60 0 / 0 Intake: Oral 240 / 240 0 / 0 Output: Urine 300 / 300 Other: Meal Dinner Percent of Meal Consumed 15% # Voids 0 # Urine Diapers 1 Weight 81.68 kg Blood Glucose* 176 - General Appearance Exam: This morning the patient appears alert and oriented. She is in no acute distress. Lungs clear to auscultation. Heart regular rate and rhythm with a 2/ 6 talk ejection murmur. Abdomen shows normal bowel sounds jennifer masses, megaly or tenderness. Patient is status post bilateral below knee amputations. There is a functioning AV fistula in the right upper extremity. Results - Lab Results 03/10/18 05:25 03/10/18 05:25 Most recent lab results Calcium 8.5 mg/dL (8.6-10.3) L 03/10/18 05:25 Consult Discharge Plan - Plan Referrals: George Mann DO [Primary Care Provider] -
[2018-03-10] MEDS ORDERED: 0.9 % Sodium Chloride 250 ML IVC PRN (08:04)
[2018-03-10] MEDS: Insulin LISPRO 300 UNITS/3 ML VIAL SQ SCH ×4 (08:33→20:43)
[2018-03-10] MEDS: Renal Vitamin 1 MG CAPSULE PO SCH (08:41)
[2018-03-10] MEDS: amLODIPine 5 MG TABLET PO SCH (08:41)
[2018-03-10] MEDS: FLUoxetine HCl 10 MG CAPSULE PO SCH (08:42)
[2018-03-10] MEDS: Furosemide 40 MG TABLET PO SCH ×2 (08:42→17:34)
[2018-03-10] MEDS: (Doxepin Hcl [Doxepin Hcl] 10 MG) PO SCH (08:43)
[2018-03-10 08:53] LABS: Hepatitis B Surface Antigen Nonreactive (Nonreactive)
[2018-03-10] MEDS ORDERED: 0.9 % Sodium Chloride 1,000 ML ONE (09:17)
[2018-03-10 10:21] LABS: INR 3.1; Prothrombin Time 34.4 Seconds (9.4-12.1)
--- NOTE | 2018-03-10 17:49 | Internal Med Progress Note ---
Date of Encounter: 03/10/18 Time of Encounter: 17:49 - Assessment and plan (1) Altered mental status Current Visit: Yes Status: Resolved Assessment and plan: Likely due to polypharmacy with Cymbalta, doxepin, MS Contin and oxycodone. All these meds are currently held. Patient's daughter is concerned that primary care provider has tapered off Klonopin and started doxepin, she wonders if patient needs low-dose benzodiazepine. She has not required any opiate or benzodiazepine today. Continue supportive care. Psychiatry evaluation pending. Qualifiers: Altered mental status type: disorientation Qualified Code(s): R41.0 - Disorientation, unspecified (2) Hallucinations Current Visit: Yes Status: Acute Assessment and plan: Plan as above. (3) ESRD (end stage renal disease) Current Visit: Yes Status: Chronic Assessment and plan: Nephrology has been consulted for hemodialysis needs. Received dialysis today. Continue Sensipar, Lasix, phosphate binders and renal vitamins per nephrology. (4) Diabetes Current Visit: Yes Status: Chronic Assessment and plan: Patient is noted to have episodes of hypoglycemia. Noted to be on as needed long-acting insulin at home, with suspicious compliance. Decrease basal insulin. Continue Accu-Chek blood glucose monitoring with sliding scale insulin. Diabetic diet. Qualifiers: Diabetes mellitus type: type 2 Diabetes mellitus extermination inspector insulin use: with fci use Diabetes mellitus complication status: with kidney complications Diabetes mellitus complication detail: with chronic kidney disease Chronic kidney disease stage: on chronic dialysis Qualified Code(s) : E11.22 - Type 2 diabetes mellitus with diabetic chronic kidney disease; N18.6 - End stage renal disease; N18.6 - End stage renal disease; N18.6 - End stage renal disease; N18.6 - End stage renal disease; Z79.4 - extermination supervisor (current) use of insulin; Z79.4 - [facility] (current) use of insulin; Z79.4 - extermination supervisor ( current) use of insulin; Z79.4 - extermination supervisor (current) use of insulin; Z99.2 - Dependence on renal dialysis; Z99.2 - Dependence on renal dialysis; Z99.2 - Dependence on renal dialysis; Z99.2 - Dependence on renal dialysis (5) Hypertension Current Visit: Yes Status: Chronic Assessment and plan: Noted to have uncontrolled hypertension at admission, improving now with home medications. Will use when necessary IV hydralazine for appropriate blood pressure control. Qualifiers: Hypertension type: essential hypertension Qualified Code(s): I10 - Essential (primary) hypertension (6) Atrial fibrillation Current Visit: Yes Status: Chronic Assessment and plan: Rate controlled. Continue beta gilma. On anti-coagulation with Coumadin, INR noted to be 4.2, hold Coumadin for now. Qualifiers: Atrial fibrillation type: paroxysmal Qualified Code(s): I48.0 - Paroxysmal atrial fibrillation - Time Spent With Patient Total time spent is greater than 50% in coordination of care (as documented) at patient's floor/unit and/or counseling patient: - Subjective Interval history: Patient reports feeling better, evaluated before and after dialysis. At baseline mental status, oriented and able to answer questions appropriately. Denies auditory or visual hallucinations, suicidal or homicidal ideation. No headache, nausea, vomiting, shortness of breath. Plan of care discussed with patient's daughter at bedside. - Constitutional Vitals: Temp Pulse Resp BP Pulse Ox 98.6 F 68 20 148/72 92 03/10/18 17:24 03/10/18 17:24 03/10/18 17:24 03/10/18 13:10 03/10/18 17:24 General appearance: Present: A&O X 3, answers questions appropriately - Respiratory Respiratory exam: Present: CTAB. Absent: accessory muscle use, rales, rhonchi, wheezes - Cardiovascular Cardiovascular exam: Present: RRR, +S1, +S2. Absent: diastolic murmur, gallop, rubs, systolic murmur - GI/Abdominal GI/Abdominal exam: Present: normal bowel sounds, soft, no peritoneal signs. Absent: distended, tenderness - Extremities Exam Extremities exam: Present: warm, radial pulses palpable and symmetrical. Absent : calf tenderness, cyanotic, pedal edema Additional comments: B/L BKA, with prosthetics - Neurological Exam Neurological exam: Present: CN II-XII intact, oriented X3, no focal deficits. Absent: pronater drift, facial droop, speech deficit Internal Medicine: Result - Labs CBC & Chem 7: 03/11/18 05:54 03/11/18 05:54 Labs: Short CBC 03/10/18 Range/Units 05:25 WBC 8.3 (4.3-11.1) K/mcL Hgb 9.6 L (11.5-15.4) g/dL Hct 30.0 L (35.3-44.9) % Plt Count 176 (140-400) K/mcL Neutrophils # 5.1 (1.6-8.9) K/mcL BMP 03/10/18 05:25 Sodium 138 Potassium 4.3 Chloride 99 Carbon Dioxide 27 BUN 41 H Creatinine 6.74 H Glucose 59 L Calcium 8.5 L Liver Function 03/10/18 Range/Units 05:25 Total Bilirubin 0.8 (0.3-1.0) mg/dL AST 14 (13-39) Units/L ALT 10 (7-52) Units/L Alkaline Phosphatase 94 (34-104) Units/L Albumin 3.8 (3.5-5.7) g/dL - ABG Interpretation ABG results: PT/INR, D-dimer PT 34.4 Seconds (9.4-12.1) H 03/10/18 09:44 Consult Discharge Plan - Plan Instructions: Acute Delirium (DC), Altered Mental Status (GEN) Additional Instructions: F/up with PCP in 1-2 weeks F/up with HD 3 times/week- MWF Referrals: George Mann DO [Primary Care Provider] - (call upon d/c)
[2018-03-10] MEDS ORDERED: *HR* Warfarin 2.5 MG TABLET PO ONE (18:00)
[2018-03-10] MEDS ORDERED: Warfarin perPT PO PRN (18:00)
[2018-03-10] MEDS: *HR* Morphine Sulfate SR (12 HR) 30 MG TABLET.ER PO SCH (18:35)
[2018-03-10] MEDS ORDERED: Insulin DETEMIR 100 UNIT/ML X5UNITS SQ SCH (21:00)
--- NOTE | 2018-03-10 22:59 | Electrocardiograph Report ---
[facility] [employer] [facility] Date: 2018-03-09 Pat Name: Zulay Lynch Department: 103 Room: 2A14 Gender: F Propagation Manager: : [id number] Requested By: Claudia Oneal Order Number: [id number] Reading MD: Vega Cheney Measurements Intervals [place] Rate: 79 P: 39 [place]: 172 QRS: -37 QRSD: 97 T: 40 QT: 396 QTc: 430 Interpretive Statements SINUS RHYTHM MARKED LEFT AXIS DEVIATION [QRS AXIS < -30] MODERATE ST DEPRESSION [0.05+ mV ST DEPRESSION] WARNING: DATA QUALITY MAY AFFECT INTERPRETATION POOR R WAVE PROGRESSION Electronically Signed On 03-10-2018 22:58:01 EDT by Vega Cheney
[2018-03-11] MEDS: Acetaminophen 325 MG TABLET PO PRN ×2 (02:51→09:15)
[2018-03-11 03:09] LABS: Hepatitis B Surface Antibody 0.45 mIU/mL
[2018-03-11] MEDS: Levothyroxine 25 MCG TABLET PO SCH (05:25)
[2018-03-11] MEDS: *HR* Morphine Sulfate SR (12 HR) 30 MG TABLET.ER PO SCH (05:25)
[2018-03-11 06:12] LABS: Basophils % 0.4 %; Eosinophils # 0.4 K/mcL (0.0-0.6); Eosinophils % 4.6 %; Hematocrit 31.6 % (35.3-44.9); Hemoglobin 10.1 g/dL (11.5-15.4); Immature Granulocytes % 0.4 % (0-4); Lymphocytes # 1.4 K/mcL (0.6-4.6); Lymphocytes % 18.4 %; Mean Corpuscular Hemoglobin 32.5 pg (28.0-33.3); Mean Corpuscular Volume 101.6 fL (83.0-100.0); Mean Platelet Volume 10.6 fL (9.4-12.4); Monocytes # 0.7 K/mcL (0.0-1.3); Monocytes % 8.9 %; Neutrophils # 5.3 K/mcL (1.6-8.9); Nucleated Red Blood Cells 0.3 /100 WBC (0); Platelet Count 171 K/mcL (140-400); Red Blood Count 3.11 M/mcL (3.82-4.97); Red Cell Distribution Width 14.9 % (11.5-14.5); Segmented Neutrophils % 67.3 %
[2018-03-11 06:19] LABS: INR 2.1; Prothrombin Time 23.2 Seconds (9.4-12.1)
[2018-03-11 07:31] LABS: Calcium 8.5 mg/dL (8.6-10.3); Potassium 4.8 mEq/L (3.5-5.1)
[2018-03-11] MEDS ORDERED: 0.9 % Sodium Chloride 250 ML IVC PRN (07:58)
--- NOTE | 2018-03-11 07:58 | Nephrology Progress Note ---
Date of Encounter: 03/11/18 Time of Encounter: 07:57 - Assessment and Plan (1) ESRD (end stage renal disease) Current Visit: Yes Status: Acute Patient will undergo dialysis today. Her mental status changes have resolved. Her TSH is elevated and she likely needs a higher dose of her Synthroid. (2) Benign hypertension with ESRD (end-stage renal disease) Current Visit: Yes Status: Acute (3) Type 2 diabetes mellitus with diabetic chronic kidney disease Current Visit: Yes Status: Acute Qualifiers: Diabetes mellitus senior living insulin use: with terminal gauger use Chronic kidney disease stage: on chronic dialysis Qualified Code(s): E11.22 - Type 2 diabetes mellitus with diabetic chronic kidney disease; N18.6 - End stage renal disease; Z99.2 - Dependence on renal dialysis; Z99.2 - Dependence on renal dialysis; Z99.2 - Dependence on renal dialysis; N18.6 - End stage renal disease ; N18.6 - End stage renal disease; N18.6 - End stage renal disease; Z79.4 - terminal make up operator (current) use of insulin; Z79.4 - [facility] (current) use of insulin; Z79.4 - [facility] (current) use of insulin; Z79.4 - terminal make up operator (current) use of insulin; Z99.2 - Dependence on renal dialysis (4) Altered mental status Current Visit: Yes Status: Acute Qualifiers: Altered mental status type: disorientation Qualified Code(s): R41.0 - Disorientation, unspecified Subjective Interval history: Patient denies any complaints. She says she feels well. Her mental status changes and confusion have resolved. She will undergo her usual dialysis today. Objective - Vital Signs Vital signs: Vital Signs Temp Pulse Resp BP Pulse Ox 03/11/18 06:57 98.1 F 67 20 171/78 97 03/11/18 03:46 97.6 F 67 16 175/85 92 03/11/18 00:01 98.2 F 77 16 162/65 92 03/10/18 19:33 98.5 F 69 16 144/52 96 03/10/18 17:24 98.6 F 68 20 92 03/10/18 13:10 97.8 F 189 148/72 03/10/18 12:35 146/71 03/10/18 12:20 144/70 03/10/18 12:10 172/79 04/10/18 12:05 132/85 03/10/18 12:00 97.5 F L 62 18 172/79 97 03/10/18 11:50 149/76 03/10/18 11:35 143/68 03/10/18 11:20 113/83 03/10/18 11:05 143/73 03/10/18 10:50 141/70 03/10/18 10:35 160/77 03/10/18 10:20 168/77 03/10/18 10:05 170/85 03/10/18 09:50 154/84 03/10/18 09:35 98.9 F 19 166/85 03/10/18 08:44 97.4 F L 73 18 167/74 90 Intake and Output 03/10/18 03/10/18 03/11/18 15:59 23:59 07:59 Intake Total 960 / 960 Output Total 3600 / 3600 Balance -2640 / -2640 Intake: Oral 360 / 360 Intake, Rinseback and Flushes 600 / 600 Output: Urine 0 / 0 Total Dialysis (HD) Output 3600 / 3600 Other: Meal Breakfast Percent of Meal Consumed 100% # Voids 1 1 Weight 81.193 kg Blood Glucose* 101 123 101 Hemodialysis Net Fluid Removed 3000 (mL) Patient Weight 03/11/18 23:59 Weight 81.193 kg - General Appearance Exam: Patient is alert and oriented. She is in no acute distress. Lungs clear to auscultation. Heart regular rate and rhythm. Abdomen is benign. Patient is status post bilateral below-knee amputations. There is a functioning AV fistula. - Lab 03/11/18 05:54 03/11/18 05:54 Most recent lab results Calcium 8.5 mg/dL (8.6-10.3) L 03/11/18 05:54 Magnesium 2.2 mg/dL (1.6-2.6) 03/11/18 05:54 Consult Discharge Plan - Plan Referrals: George Mann DO [Primary Care Provider] - (call upon d/c)
[2018-03-11] MEDS: amLODIPine 5 MG TABLET PO SCH (08:45)
[2018-03-11] MEDS: Renal Vitamin 1 MG CAPSULE PO SCH (08:45)
[2018-03-11] MEDS: FLUoxetine HCl 10 MG CAPSULE PO SCH (08:45)
[2018-03-11] MEDS: Furosemide 40 MG TABLET PO SCH (08:45)
[2018-03-11] MEDS: Insulin LISPRO 300 UNITS/3 ML VIAL SQ SCH ×2 (08:46→13:19)
--- NOTE | 2018-03-11 14:31 | Psychiatry Progress Note ---
Date of Encounter: 03/11/18 Time of Encounter: 13:40 Subjective Interval history: 67 years old female admitted to the hospital for evaluation and treatment of altered mental status. Patient has a complex medical history including ESRD, hypertension, diabetes type 2. Records indicated that patient experienced change in her mental status was hallucination and homicidal ideation against her daughter, apparently she was in a delirious state that time. Record also indicated that patient was recently taken off Klonopin appropriately and she experience benzodiazepine withdrawal. Patient is on medication including duloxetine fluoxetine and doxepin. Psychiatric consultation was requested to evaluate the change in her mental state. Also patient missed her dialysis appointments and this can contribute to her delirious state in addition to above factors. I went to see the patient in her room she presented as an elderly white female was deeply asleep and could not be awakened for evaluation. From progress notes it appeared that patient is improving and scheduled to have her dialysis which certainly will help her delirious state to clear. Review of Systems Psychiatric: Reports: homicidal ideation, auditory hallucinations Results - Vital Signs Vital Signs: Temp Pulse Resp BP Pulse Ox 97.7 F 67 18 187/84 97 03/11/18 13:19 03/11/18 06:57 03/11/18 13:19 03/11/18 13:19 03/11/18 06:57 - Labs Labs: Laboratory Results - last 24 hr 03/09/18 03/10/18 03/10/18 20:06 07:26 07:51 WBC RBC Hgb Hct MCV MCH MCHC RDW Plt Count MPV Immature Gran % Seg Neutrophils % Lymphocytes % Monocytes % Eosinophils % Basophils % Neutrophils # Lymphocytes # Monocytes # Eosinophils # Basophils # Nucleated RBCs/100 WBC PT INR Sodium Potassium Chloride Carbon Dioxide BUN Creatinine Est GFR ( Amer) Est GFR (Non-Af Amer) BUN/Creatinine Ratio Glucose POC Glucose 176 H 65 L Calculated Osmolality Calcium Magnesium Ammonia Hep Bs Antibody 0.45 03/10/18 03/10/18 03/10/18 08:58 11:59 17:20 WBC RBC Hgb Hct MCV MCH MCHC RDW Plt Count MPV Immature Gran % Seg Neutrophils % Lymphocytes % Monocytes % Eosinophils % Basophils % Neutrophils # Lymphocytes # Monocytes # Eosinophils # Basophils # Nucleated RBCs/100 WBC PT INR Sodium Potassium Chloride Carbon Dioxide BUN Creatinine Est GFR ( Amer) Est GFR (Non-Af Amer) BUN/Creatinine Ratio Glucose POC Glucose 126 H 101 H 140 H Calculated Osmolality Calcium Magnesium Ammonia Hep Bs Antibody 03/11/18 03/11/18 03/11/18 05:54 05:54 05:54 WBC 7.8 RBC 3.11 L Hgb 10.1 L Hct 31.6 L MCV 101.6 H MCH 32.5 MCHC 32.0 RDW 14.9 H Plt Count 171 MPV 10.6 Immature Gran % 0.4 Seg Neutrophils % 67.3 Lymphocytes % 18.4 Monocytes % 8.9 Eosinophils % 4.6 Basophils % 0.4 Neutrophils # 5.3 Lymphocytes # 1.4 Monocytes # 0.7 Eosinophils # 0.4 Basophils # 0.0 Nucleated RBCs/100 WBC 0.3 H PT 23.2 H INR 2.1 Sodium 135 L Potassium 4.8 Chloride 97 L Carbon Dioxide 29 BUN 23 Creatinine 4.77 H Est GFR ( Amer) 11 L Est GFR (Non-Af Amer) 9 L BUN/Creatinine Ratio 5 L Glucose 120 H POC Glucose Calculated Osmolality 285 Calcium 8.5 L Magnesium Ammonia Hep Bs Antibody 03/11/18 03/11/18 05:54 05:54 WBC RBC Hgb Hct MCV MCH MCHC RDW Plt Count MPV Immature Gran % Seg Neutrophils % Lymphocytes % Monocytes % Eosinophils % Basophils % Neutrophils # Lymphocytes # Monocytes # Eosinophils # Basophils # Nucleated RBCs/100 WBC PT INR Sodium Potassium Chloride Carbon Dioxide BUN Creatinine Est GFR ( Amer) Est GFR (Non-Af Amer) BUN/Creatinine Ratio Glucose POC Glucose Calculated Osmolality Calcium Magnesium 2.2 Ammonia 37 Hep Bs Antibody Assessment and Plan (1) Delirium due to multiple etiologies Current visit: Yes Status: Acute Plan: Continue hospitalization, Close observation, Suicide Precautions per unit protocol, Encourage participation in unit milieu, Group Therapy, Monitor sleep, Monitor appetite Additional Plan: 1. Continue medical stabilization to resolve her delirium 2. Patient experienced benzodiazepine withdrawal and precautions should be applied 3. There is no psychiatric emergency condition that require inpatient hospitalization at this time. Patient can be discharged when medically stable. Thank you for consultation Consult Discharge Plan - Plan Referrals: George Mann DO [Primary Care Provider] - (call upon d/c) Psychiatry Exam - Constitutional Vitals: Temp Pulse Resp BP Pulse Ox 97.7 F 67 18 187/84 97 03/11/18 13:19 03/11/18 06:57 03/11/18 13:19 03/11/18 13:19 03/11/18 06:57 Additional observations: Patient presented as an elderly white female lying in bed, sleep deeply asleep could not be awakened for evaluation.
--- NOTE | 2018-03-11 15:17 | Discharge Summary ---
- NOTES TO OUTPATIENT PROVIDER Notes to Outpatient Provider: No cause for hallucinations identified; recommend decreasing opiates; monitor TSH and FT4; Orders not resulted at time of discharge: Pending orders 03/12/18 04:00 Basic Metabolic Panel AM 0400 Complete Blood Count w/o Diff [HEME] AM 0400 PT/INR [Prothrombin Time INR] [COAG] AM 0400 03/13/18 04:00 Basic Metabolic Panel AM 0400 Complete Blood Count w/o Diff [HEME] AM 0400 PT/INR [Prothrombin Time INR] [COAG] AM 0400 03/14/18 04:00 Basic Metabolic Panel AM 0400 Complete Blood Count w/o Diff [HEME] AM 0400 PT/INR [Prothrombin Time INR] [COAG] AM 0400 03/15/18 04:00 Basic Metabolic Panel AM 0400 Complete Blood Count w/o Diff [HEME] AM 0400 03/16/18 04:00 Basic Metabolic Panel AM 0400 Complete Blood Count w/o Diff [HEME] AM 0400 03/17/18 04:00 Basic Metabolic Panel AM 0400 Complete Blood Count w/o Diff [HEME] AM 0400 03/18/18 04:00 Basic Metabolic Panel AM 0400 Complete Blood Count w/o Diff [HEME] AM 0400 Date of Encounter: 03/11/18 Time of Encounter: 15:15 - Discharge Diagnosis (1) Altered mental status Priority: Primary Status: Resolved Qualifiers: Altered mental status type: disorientation Qualified Code(s): R41.0 - Disorientation, unspecified (2) Hallucinations Priority: Primary Status: Acute (3) ESRD (end stage renal disease) Priority: Secondary Status: Chronic (4) Diabetes Priority: Secondary Status: Chronic Qualifiers: Diabetes mellitus type: type 2 Diabetes mellitus 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 Diabetes mellitus complication status: with kidney complications Diabetes mellitus complication detail: with chronic kidney disease Chronic kidney disease stage: on chronic dialysis Qualified Code(s) : E11.22 - Type 2 diabetes mellitus with diabetic chronic kidney disease; N18.6 - End stage renal disease; N18.6 - End stage renal disease; N18.6 - End stage renal disease; N18.6 - End stage renal disease; 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; Z79.4 - FPC (current) use of insulin; Z79.4 - FPC ( current) use of insulin; Z79.4 - FPC (current) use of insulin; Z99.2 - Dependence on renal dialysis; Z99.2 - Dependence on renal dialysis; Z99.2 - Dependence on renal dialysis; Z99.2 - Dependence on renal dialysis (5) Hypertension Priority: Secondary Status: Chronic Qualifiers: Hypertension type: essential hypertension Qualified Code(s): I10 - Essential (primary) hypertension (6) Atrial fibrillation Priority: Secondary Status: Chronic Qualifiers: Atrial fibrillation type: paroxysmal Qualified Code(s): I48.0 - Paroxysmal atrial fibrillation Hospital course: Ms. Lynch is a 67 year old female with the above medical problems, admitted with hallucinations- auditory and visual, and confusion. Basic labs and chest XRay showed no acute abnormality. No source of infection was identified. Her daughter reports that patient's PCP has gradually tapered her off Klonopin, and started on Doxepin, and she attributes the mental status changes to this. patient was aslo noted to be on high dose of long and immediate release opiates , these were held in the hospital, and she had no significant pain. The doses of Oxycodone and Oxycontin are being decreased at discharge. Psychiatry evaluation was requested, which was not completed due to patient being asleep? She is medically stable for discharge with outpatient f/up. Nephrology was consulted and she received regular HD sessions. Discharge discussed with: patient, family - Time Spent with Patient Total time spent providing and/or coordinating discharge services: Greater than 30 minutes (40 min) - Discharge Medications Home Medications: Amlodipine Besylate 10 mg PO DAILY 03/09/18 [History] Cinacalcet [Sensipar] 30 mg PO DAILY 03/09/18 [History] DULoxetine [Cymbalta] 30 mg PO DAILY 03/09/18 [History] Docusate Sodium [Dok] 100 mg PO BID 03/09/18 [History] Doxepin HCl 10 mg PO BID 03/09/18 [History] FLUoxetine HCl [Prozac] 10 mg PO DAILY 03/09/18 [History] Furosemide [Lasix] 80 mg PO BID PRN 03/09/18 [History] Levothyroxine [Synthroid] 25 mcg PO DAILY 03/09/18 [History] Metoprolol [Lopressor] 25 mg PO BID 03/09/18 [History] Omeprazole [PriLOSEC] 20 mg PO DAILY 03/09/18 [History] Renal Vitamin [Renal Caps Softgel] 1 mg PO DAILY 03/09/18 [History] Sevelamer [Renvela] 3,200 mg PO TIDWM 03/09/18 [History] glipiZIDE [Glucotrol] 5 mg PO DAILY 03/09/18 [History] Warfarin [Coumadin] 5 mg PO AD 03/10/18 [History] Insulin Glargine [Lantus] 10 unit SQ HS PRN #0 03/11/18 [Rx] Morphine Sulfate SR (12 HR) [MS Contin] 0.5 tab PO Q12HR 5 Days #10 03/11/18 [Rx ] Oxycodone HCl 10 mg PO Q6H PRN 10 Days #20 03/11/18 [Rx] Allergies/Adverse Reactions: 3 Allergy/AdvReac Type Severity Reaction Status Date / Time Penicillins Allergy Rash Verified 03/09/18 11:29 iron AdvReac Vomiting Verified 03/09/18 11:29 Date of admission: 03/09/18 17:24 Primary care physician: George Mann, Consults: 03/10/18 08:15 Consult to Dialysis [CONS] ONCE 03/11/18 08:00 Consult to Dialysis [CONS] ONCE Discharging clinician: Brinda Kaur Anticipated date of discharge: 03/11/18 - Constitutional Vitals: Temp Pulse Resp BP Pulse Ox 97.7 F 67 18 187/84 97 03/11/18 13:19 03/11/18 06:57 03/11/18 13:19 03/11/18 13:19 03/11/18 06:57 General appearance: Present: A&O X 3, answers questions appropriately - Respiratory Respiratory exam: Present: CTAB. Absent: accessory muscle use, rales, rhonchi, wheezes - Patient Status Disposition: Home, Self-Care Condition: Fair Functional capacity at discharge: wheelchair bound Overall status at discharge: patient is progressing back to baseline - Discharge Instructions Instructions: Acute Delirium (DC), Altered Mental Status (GEN) Follow Up With: George Mann, DO [Primary Care Provider] - (call upon d/c) Additional Instructions: F/up with PCP in 1-2 weeks F/up with HD 3 times/week- MWF - Diet and Activity Activity: resume usual activities as tolerated Diet: diabetic diet, low fat, low cholesterol, low salt diet, other (renal diet)
[2018-03-11 15:55] VITALS: BP 179/75
--- NOTE | 2018-03-11 16:15 | Physician Discharge Referral ---
Home Health/Hosp Referral Info Transfer to: Home Health Attending Provider: Brinda Kaur Provider in Charge Post Discharge: PCP - Diagnosis (1) Altered mental status Priority: Primary Status: Resolved (2) Hallucinations Priority: Primary Status: Acute (3) ESRD (end stage renal disease) Priority: Secondary Status: Chronic (4) Diabetes Priority: Secondary Status: Chronic (5) Hypertension Priority: Secondary Status: Chronic (6) Atrial fibrillation Priority: Secondary Status: Chronic - Respiratory Orders Smoking Cessation: Smoking cessation has been advised. For more information, call the [place] Tobacco Quit Line at 7-980-VEOF-NOW. - Diet/Nutrition Diet/Nutrition Orders: Renal, Cardiac, No Concentrated Sweets (diabetic) - Activity Activity Orders: Ambulate, Walker - Services Needed Following services are medically necessary services: Nursing, Home Health Aide - Transfer Medications Home Medications: Amlodipine Besylate 10 mg PO DAILY 03/09/18 [History] Cinacalcet [Sensipar] 30 mg PO DAILY 03/09/18 [History] DULoxetine [Cymbalta] 30 mg PO DAILY 03/09/18 [History] Docusate Sodium [Dok] 100 mg PO BID 03/09/18 [History] Doxepin HCl 10 mg PO BID 03/09/18 [History] FLUoxetine HCl [Prozac] 10 mg PO DAILY 03/09/18 [History] Furosemide [Lasix] 80 mg PO BID PRN 03/09/18 [History] Levothyroxine [Synthroid] 25 mcg PO DAILY 03/09/18 [History] Metoprolol [Lopressor] 25 mg PO BID 03/09/18 [History] Omeprazole [PriLOSEC] 20 mg PO DAILY 03/09/18 [History] Renal Vitamin [Renal Caps Softgel] 1 mg PO DAILY 03/09/18 [History] Sevelamer [Renvela] 3,200 mg PO TIDWM 03/09/18 [History] glipiZIDE [Glucotrol] 5 mg PO DAILY 03/09/18 [History] Warfarin [Coumadin] 5 mg PO AD 03/10/18 [History] Insulin Glargine [Lantus] 10 unit SQ HS PRN #0 03/11/18 [Rx] Morphine Sulfate SR (12 HR) [MS Contin] 0.5 tab PO Q12HR 5 Days #10 03/11/18 [Rx ] Oxycodone HCl 10 mg PO Q6H PRN 10 Days #20 03/11/18 [Rx] Allergies/Adverse Reactions: 3 Allergy/AdvReac Type Severity Reaction Status Date / Time Penicillins Allergy Rash Verified 03/09/18 11:29 iron AdvReac Vomiting Verified 03/09/18 11:29 Certification: Further, I certify that my clinical findings support that this patient is homebound (i.e. absences from home require considerable and taxing effort and are for medical reasons or anglican services or infrequently or short duration when for other reasons) because: Homebound Reason: Patient requires assistance of a person or device to safely leave home, Leaving home requires considerable and taxing effort due to condition Attestation: My signature below is to certify that this patient is under my care and that I, or nurse practitioner, or a physician's assistant head cashier working with me, has a face-to -face encounter with this patient.
[2018-03-11] MEDS ORDERED: 0.9 % Sodium Chloride 1,000 ML ONE (16:19)
[2018-03-11] MEDS ORDERED: *HR* Warfarin 5 MG TABLET PO ONE (18:00)
[2018-03-11] MEDS ORDERED: *HR* Morphine Sulfate SR (12 HR) 15 MG TABLET.ER PO SCH (18:00)
== END 2018-03-11 17:15 | disposition home or self-care (01) | DRG 885 ==
LOC: EMEROO 11:01 → SUATTDRO 17:24 → 2ANU 17:24
PROVIDERS: ADMIT Internal Medicine Cardiovascular Disease; ATTEND Internal Medicine